=== PATIENT | female | born 1965 | race Caucasian/White ===

== ENCOUNTER 2017-03-16 21:25 | Emergency (ER) | payer BC ==
[~2017-03-16] VITALS: Ht 172.7 cm; Wt 90.0 kg
[2017-03-16] MEDS ORDERED: PARO10TA24 PO (23:09)
[2017-03-16 23:33] LABS: HEMOGLOBIN 14.1 g/dL (11.7-16.4)
[2017-03-16 23:36] LABS: BLOOD UREA NITROGEN 14 mg/dL (7-18)
[2017-03-17 02:07] VITALS: BP 137/84
[2017-03-17] MEDS ORDERED: IBUPROFEN 200 MG TABLET PO ONE (02:30)
== END 2017-03-17 02:09 | disposition home or self-care (01) ==
LOC: ED 03-17 02:00
DX: M25.572 Pain in left ankle and joints of left foot (principal); R42 Dizziness and giddiness
CPT/HCPCS: 36415; 70450; 71010; 80048; 82040; 85025; 93005; 99285